=== PATIENT | female | born 1960 | race Caucasian/White ===

== ENCOUNTER 2016-03-11 17:57 | Emergency (ER) | payer SELFPAY ==
[~2016-03-11] VITALS: Ht 160 cm; Wt 105.7 kg
[2016-03-11] VITALS (8 sets, daily range): BP systolic 131–180; BP diastolic 80–100; PULSE 59–67; RESP 16–18; TEMP 97.7; O2SAT 95–98
[~2016-03-11 17:57] MED LIST: ARIP1TAB5 PO; DULO20 PO; LEVO112T2 PO; LOSA50TA PO; MECL-62 PO; ZOCO40TA PO; ZOFR4TAB PO
[2016-03-11] MEDS ORDERED: CLOPIDOGREL 300 MG TAB PO ONE (18:15)
[2016-03-11] MEDS ORDERED: MORPHINE SULFATE 4 MG/ML INJ IV PUSH ONE (18:15)
[2016-03-11] MEDS ORDERED: SODIUM CHLORIDE 0.9% FLUSH 5 ML FLUSH IVF PRN (18:15)
[2016-03-11] MEDS ORDERED: ASPIRIN 81 MG CHEW TAB PO ONE (18:15)
[2016-03-11] MEDS: NITROGLYCERIN 0.4 MG SL 25 TABS/BTL SL SCH ×3 (18:20→18:34)
--- NOTE | 2016-03-11 18:20 | PD ---
HPI . Chest and left arm pain Chief Complaint: Chest Pain Time Seen by Provider: 18:12 Travel History International Travel<30 days: No Contact w/Intl Traveler<30days: No Traveled to known affect area: No History of Present Illness HPI Patient presents with chest and left arm pain which has been ongoing for about a week. It is exacerbated by movement. It has been partially relieved by ibuprofen. She denies any associated symptoms such as shortness of breath, diaphoresis, dizziness, nausea. PFSH Past Medical History Anxiety: Yes Cardiovascular Problems: Yes (htn on meds) High Cholesterol: Yes Diminished Hearing: No Hypertension: Yes ?: Not Menopausal: Yes Tubal Ligation: Yes Past Surgical History Gynecologic Surgery: Yes (uterine ablation) Other Surgery: Yes (THYROID CA, OBLATION) Social History Alcohol Use: No Tobacco Use: No Substance Use: No Allergies-Medications (Allergen,Severity, Reaction): Coded Allergies: No Known Allergies (Unverified , 03/11/16) Reported Meds & Prescriptions Reported Meds & Active Scripts Active Ultram (Tramadol HCl) 50 Mg Tab 50 Mg PO Q4H PRN Ibuprofen 800 Mg Tab 800 Mg PO Q8H PRN Levothyroxine (Levothyroxine Sodium) 112 Mcg Tab 112 Mcg PO DAILY Cymbalta DR (Duloxetine HCl) 20 Mg Capdr 20 Mg PO DAILY Abilify (Aripiprazole) 10 Mg Tab 10 Mg PO DAILY Reported Zocor (Simvastatin) 40 Mg Tab 40 Mg PO HS Losartan (Losartan Potassium) 50 Mg Tab 50 Mg PO DAILY Review of Systems Except as stated in HPI: all other systems reviewed are Neg General / Constitutional: No: Fever, Chills Cardiovascular: Positive: Chest Pain or Discomfort Respiratory: No: Shortness of Breath Gastrointestinal: No: Nausea Skin: Positive Other (no diaphoresis) Physical Exam Narrative GENERAL: This patient is in no acute distress. She appears to be mentally challenged. SKIN: Warm and dry. HEAD: Atraumatic. Normocephalic. EYES: Pupils equal and round. ENT: No nasal bleeding or discharge. Mucous membranes pink and moist. NECK: Trachea midline. C-spine is nontender. She does have some tenderness in the left trapezius. CARDIOVASCULAR: Regular rate and rhythm. Heart sounds are normal. RESPIRATORY: No accessory muscle use. Lungs are clear with full air movement throughout. She does have some left sided chest wall tenderness. GASTROINTESTINAL: Abdomen soft, non-tender, nondistended. MUSCULOSKELETAL: No obvious deformities. No edema. She does have some tenderness to palpation in the left upper extremity. NEUROLOGICAL: Awake and alert. No obvious cranial nerve deficits. Motor grossly within normal limits. Normal speech. PSYCHIATRIC: Appropriate mood and affect; insight and judgment normal. Data Data Last Documented VS Vital Signs Date Time Temp Pulse Resp B/P Pulse Ox O2 Delivery O2 Flow Rate FiO2 03/11/16 19:55 59 16 131/89 98 Nasal Cannula 03/11/16 19:10 2 03/11/16 18:08 97.7 Orders Electrocardiogram (03/11/16 18:12) Ckmb (Isoenzyme) Profile (03/11/16 18:12) Complete Blood Count With Diff (03/11/16 18:12) Comprehensive Metabolic Panel (03/11/16 18:12) Magnesium (Mg) (03/11/16 18:12) Troponin I (03/11/16 18:12) Chest, Single Ap (03/11/16 18:12) Ecg Monitoring (03/11/16 18:12) Bilateral Bp Monitoring (03/11/16 18:12) Iv Access Insert/Monitor (03/11/16 18:12) Oximetry (03/11/16 18:12) Oxygen Administration (03/11/16 18:12) Aspirin Chew (Aspirin Chew) (03/11/16 18:15) Morphine Inj (Morphine Inj) (03/11/16 18:15) Sodium Chloride 0.9% Flush (Ns Flush) (03/11/16 18:15) Nitroglycerin Sl (Nitrostat Sl) (03/11/16 18:15) Clopidogrel (Plavix) (03/11/16 19:00) CKMB (03/11/16 18:20) CKMB% (03/11/16 18:20) Electrocardiogram (03/11/16 ) Troponin I (03/11/16 19:38) Labs Laboratory Tests Test 03/11/16 03/11/16 18:20 20:00 White Blood Count 7.7 TH/MM3 Red Blood Count 4.67 MIL/MM3 Hemoglobin 13.8 GM/DL Hematocrit 40.0 % Mean Corpuscular Volume 85.7 FL Mean Corpuscular Hemoglobin 29.6 PG Mean Corpuscular Hemoglobin 34.5 % Concent Red Cell Distribution Width 13.3 % Platelet Count 267 TH/MM3 Mean Platelet Volume 8.3 FL Neutrophils (%) (Auto) 54.0 % Lymphocytes (%) (Auto) 34.2 % Monocytes (%) (Auto) 5.5 % Eosinophils (%) (Auto) 3.6 % Basophils (%) (Auto) 2.7 % Neutrophils # (Auto) 4.2 TH/MM3 Lymphocytes # (Auto) 2.6 TH/MM3 Monocytes # (Auto) 0.4 TH/MM3 Eosinophils # (Auto) 0.3 TH/MM3 Basophils # (Auto) 0.2 TH/MM3 CBC Comment DIFF FINAL Differential Comment Sodium Level 140 MEQ/L Potassium Level 4.2 MEQ/L Chloride Level 103 MEQ/L Carbon Dioxide Level 27.2 MEQ/L Anion Gap 10 MEQ/L Blood Urea Nitrogen 14 MG/DL Creatinine 1.30 MG/DL Estimat Glomerular Filtration 43 ML/MIN Rate Random Glucose 160 MG/DL Calcium Level 8.9 MG/DL Magnesium Level 2.2 MG/DL Total Bilirubin 0.4 MG/DL Aspartate Amino Transf 36 U/L (AST/SGOT) Alanine Aminotransferase 35 U/L (ALT/SGPT) Alkaline Phosphatase 86 U/L Total Creatine Kinase 330 U/L Creatine Kinase MB 5.0 NG/ML Creatine Kinase MB % 1.5 % Troponin I LESS THAN 0.02 LESS THAN 0.02 NG/ML NG/ML Total Protein 7.8 GM/DL Albumin 3.9 GM/DL MDM Medical Decision Making Medical Screen Exam Complete: Yes Emergency Medical Condition: Yes Interpretation(s) EKG shows a sinus rhythm. She has some nonspecific lateral T-wave changes. She has no old EKGs for comparison. Differential Diagnosis Differential diagnosis of chest pain includes but is not limited to musculoskeletal pain, pulmonary embolism, acute coronary syndrome, pneumonia, pleurisy Narrative Course Patient presents for the evaluation of chest pain and left arm pain. Symptoms have been ongoing for a week. Symptoms are exacerbated by movement and have been partially relieved by ibuprofen. She also has tenderness to palpation. Therefore, the most likely diagnosis is musculoskeletal. However, the patient does have a history of hypertension and hyperlipidemia. And, her EKG is not totally normal. Unfortunately, she has no old EKGs for comparison. CBC is normal. Electrolytes are normal. Her total CK ER elevated but her RI is normal as is her troponin. Chest x-ray is negative to the radiologist's interpretation. Chest x-ray was independently viewed by me. Repeat EKG continues to show lateral T-wave inversion. I have ordered a repeat troponin. Repeat troponin is negative. The most likely diagnosis for this patient is musculoskeletal pain. Diagnosis Primary Impression: Chest pain Qualified Code: R07.9 - Chest pain, unspecified type Additional Impression: Left arm pain Scripts Tramadol (Ultram)50 Mg Tab50 Mg PO Q4H PRN (PAIN) #12 TAB Ref 0 Prov:Marilyn Orellana MD 03/11/16 Ibuprofen 800 Mg [id number] Mg PO Q8H PRN (pain) #30 TAB Ref 0 Prov:Marilyn Orellana MD 03/11/16 Disposition: 01 DISCHARGE HOME Condition: Stable Marilyn Orellana MD Mar 11, 2016 18:20
[2016-03-11 18:29] LABS: AUTOMATED NEUTROPHIL # 4.2 TH/MM3 (1.8-7.7); BASOPHIL # 0.2 TH/MM3 (0-0.2); BASOPHIL % 2.7 % (0.0-2.0); EOSINOPHIL # 0.3 TH/MM3 (0-0.4); EOSINOPHIL % 3.6 % (0.0-4.0); HEMO FLAGS DIFF FINAL; LYMPH % 34.2 % (9.0-44.0); LYMPHOCYTE # 2.6 TH/MM3 (1.0-4.8); MEAN CELL VOLUME 85.7 FL (80.0-100.0); MEAN CORPUSCULAR HEMOGLOBIN 29.6 PG (27.0-34.0); MEAN CORPUSCULAR HGB CONC 34.5 % (32.0-36.0); MONO % 5.5 % (0.0-8.0); PLATELET COUNT 267 TH/MM3 (150-450); RED BLOOD COUNT 4.67 MIL/MM3 (4.00-5.30); RED CELL DISTRIBUTION WIDTH 13.3 % (11.6-17.2); WHITE BLOOD COUNT 7.7 TH/MM3 (4.0-11.0)
[2016-03-11 18:36] LABS: CHLORIDE 103 MEQ/L (98-107); POTASSIUM 4.2 MEQ/L (3.5-5.1); SODIUM (NA) 140 MEQ/L (136-145)
[2016-03-11 18:40] LABS: ANION GAP 10 MEQ/L (5-15); BICARBONATE 27.2 MEQ/L (21.0-32.0); BLOOD UREA NITROGEN 14 MG/DL (7-18); MAGNESIUM 2.2 MG/DL (1.5-2.5)
[2016-03-11 18:43] LABS: ALT (GPT) 35 U/L (10-53); AST (GOT) 36 U/L (15-37); GLOMERULAR FILTRATION RATE 43 ML/MIN (>89)
[2016-03-11 18:44] LABS: TOTAL BILIRUBIN ADULT 0.4 MG/DL (0.2-1.0)
[2016-03-11 18:45] LABS: CREATINE KINASE 330 U/L (26-192)
[2016-03-11 18:46] LABS: ALKALINE PHOSPHATASE 86 U/L (45-117)
--- NOTE | 2016-03-11 18:53 | RADHPO ---
EXAM DATE/TIME: 03/11/2016 18:15 [facility] COMPARISON: No previous studies available for comparison. INDICATIONS : Chest pain one week ago. MEDICAL HISTORY : Asthma. SURGICAL HISTORY : None. ENCOUNTER: Initial ACUITY: 1 week PAIN SCORE: 0/10 LOCATION: Left chest FINDINGS: A single view of the chest demonstrates the lungs to be symmetrically aerated without evidence of mas s, infiltrate or effusion. The cardiomediastinal contours are unremarkable. Osseous structures are intact. CONCLUSION: No acute disease. Rayo Jimenez MD on March 11, 2016 at 18:52 Board Certified Radiologist. This report was verified electronically.
[2016-03-11] MEDS ORDERED: CLOPIDOGREL 75 MG TAB PO ONE (19:00)
[2016-03-11] MEDS ORDERED: ULTR50TA5 PO (20:26)
[2016-03-11] MEDS ORDERED: IBUP800T23 PO (20:26)
--- NOTE | 2016-03-12 23:41 | EKG ---
Date Performed: 03/11/2016 Time Performed: 19:35:30 PTAGE: 55 years EKG: Sinus bradycardia. Nonspecific ST and T wave abnormalities Low QRS voltages in precordial l margarito Abnormal ECG PREVIOUS TRACING : 03/11/2016 18.17 Compared to prior tracing no significant change DOCTOR: Dev Reed Interpretating Date/Time 03/12/2016 23:39:25
--- NOTE | 2016-03-13 20:44 | EKG ---
Date Performed: 03/11/2016 Time Performed: 18:17:52 PTAGE: 55 years EKG: Sinus rhythm . Prolonged QT interval rSr'(V1) - probable normal variant Nonspecific ST and T wave abnormalities Lo w QRS voltages in precordial leads Abnormal ECG NO PREVIOUS TRACING DOCTOR: Dev Reed Interpretating Date/Time 03/13/2016 20:43:40
== END 2016-03-11 21:29 | disposition home or self-care (01) ==
LOC: PHED 17:57
DX: R07.9 Chest pain, unspecified (principal); M79.602 Pain in left arm; E78.00 Pure hypercholesterolemia, unspecified; I10 Essential (primary) hypertension; F41.9 Anxiety disorder, unspecified; R00.1 Bradycardia, unspecified
CPT/HCPCS: 71010; 80053; 82550; 82552; 83735; 84484; 85025; 93005; 96374; 99285; J2270

== ENCOUNTER 2016-04-30 18:16 | Emergency (ER) | payer SELFPAY ==
[~2016-04-30] VITALS: Ht 160 cm; Wt 104.3 kg
[~2016-04-30 18:16] MED LIST changes: +IBUP800T23 PO; -MECL-62 PO; +ULTR50TA5 PO; -ZOFR4TAB PO
[2016-04-30 18:18] VITALS: BP 173/116; PULSE 88; RESP 15; TEMP 98.1; O2SAT 98
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
[2016-04-30 19:10] VITALS: BP 144/87; PULSE 56; RESP 18; TEMP 98.3; O2SAT 97
[2016-04-30 19:15] VITALS: O2SAT 97
[2016-04-30] MEDS ORDERED: ASPIRIN 325 MG TAB PO ONE (19:15)
[2016-04-30 19:31] LABS: AUTOMATED NEUTROPHIL # 3.8 TH/MM3 (1.8-7.7); BASOPHIL # 0.1 TH/MM3 (0-0.2); BASOPHIL % 1.3 % (0.0-2.0); EOSINOPHIL # 0.2 TH/MM3 (0-0.4); EOSINOPHIL % 3.5 % (0.0-4.0); HEMATOCRIT 40.5 % (35.0-46.0); HEMO FLAGS DIFF FINAL; LYMPH % 33.1 % (9.0-44.0); LYMPHOCYTE # 2.2 TH/MM3 (1.0-4.8); MEAN CELL VOLUME 86.3 FL (80.0-100.0); MEAN CORPUSCULAR HEMOGLOBIN 29.2 PG (27.0-34.0); MEAN CORPUSCULAR HGB CONC 33.8 % (32.0-36.0); MONO % 6.1 % (0.0-8.0); PLATELET COUNT 257 TH/MM3 (150-450); RED BLOOD COUNT 4.69 MIL/MM3 (4.00-5.30); RED CELL DISTRIBUTION WIDTH 14.1 % (11.6-17.2); WHITE BLOOD COUNT 6.7 TH/MM3 (4.0-11.0)
[2016-04-30 19:33] LABS: BLOOD, URINE NEG (NEG); GLUCOSE,URINE NEG (NEG); KETONE, URINE NEG (NEG); NITRITE,URINE NEG (NEG)
[2016-04-30 19:43] LABS: URINE COLOR YELLOW (YELLW/STRAW)
[2016-04-30 19:44] LABS: MUCUS URINE MOD /lpf (OCC); SQUAMOUS EPITHELIAL CELL URINE > 8 /hpf (0-5)
--- NOTE | 2016-04-30 19:44 | RADHPO ---
EXAM DATE/TIME: 04/30/2016 19:12 [facility] COMPARISON: CHEST SINGLE AP, March 11, 2016, 18:15. INDICATIONS : Chest pain. MEDICAL HISTORY : Asthma SURGICAL HISTORY : None. ENCOUNTER: Initial ACUITY: 1 day PAIN SCORE: 5/10 LOCATION: Bilateral chest FINDINGS: A single view of the chest demonstrates the lungs to be symmetrically aerated without evidence of mas s, infiltrate or effusion. The cardiomediastinal contours are unremarkable. Osseous structures are intact. CONCLUSION: Normal examination for a patient of this age. No significant change has occurred. Charles Woods MD on April 30, 2016 at 19:42 Board Certified Radiologist. This report was verified electronically.
[2016-04-30 19:45] LABS: BACTERIA, URINE MOD /hpf; CALCIUM OXALATE CRYSTALS,URINE MOD /hpf
[2016-04-30 19:46] LABS: COMMENT (UR) CULTURE INDICATED; CULTURE IF INDICATED CULTURE INDICATED
[2016-04-30 19:52] LABS: CHLORIDE 101 MEQ/L (98-107); POTASSIUM 3.6 MEQ/L (3.5-5.1); SODIUM (NA) 140 MEQ/L (136-145)
[2016-04-30 19:55] LABS: ANION GAP 10 MEQ/L (5-15); BLOOD UREA NITROGEN 15 MG/DL (7-18)
[2016-04-30 19:57] LABS: APTT (PATIENT) 27.8 SEC (24.3-30.1); PROTHROMBIN TIME - PATIENT 11.4 SEC (9.8-11.6)
[2016-04-30 19:58] LABS: ALT (GPT) 38 U/L (10-53); AST (GOT) 34 U/L (15-37)
[2016-04-30 19:59] LABS: GLOMERULAR FILTRATION RATE 39 ML/MIN (>89)
[2016-04-30 20:00] LABS: TOTAL BILIRUBIN ADULT 0.6 MG/DL (0.2-1.0)
[2016-04-30 20:01] LABS: ALKALINE PHOSPHATASE 62 U/L (45-117); CREATINE KINASE 912 U/L (26-192)
[2016-04-30 20:10] VITALS: BP 128/88; PULSE 57; RESP 18; O2SAT 95
[2016-04-30 20:26] LABS: CKMB 7.7 NG/ML (0.5-3.6)
--- NOTE | 2016-04-30 20:49 | RADHPO ---
EXAM DATE/TIME: 04/30/2016 20:05 [facility] COMPARISON: No previous studies available for comparison. INDICATIONS : Low back pain X 1 month. No recent trauma. MEDICAL HISTORY : Asthma. SURGICAL HISTORY : None. ENCOUNTER: Initial ACUITY: 1 month PAIN SCORE: 7/10 LOCATION: Bilateral low back. FINDINGS: Two view examination was performed. There are five non-rib bearing vertebral bodies. There is a mild lumbar dextroscoliosis. No fracture or spondylolisthesis. CONCLUSION: 1. Mild lumbar dextroscoliosis. No acute fracture or spondylolisthesis. Mild degenerative disc diseas simon Woods MD on April 30, 2016 at 20:45 Board Certified Radiologist. This report was verified electronically.
[2016-04-30] MEDS ORDERED: LEVO112T2 PO (21:07)
[2016-04-30] MEDS ORDERED: BACT800T5 PO (21:07)
[2016-04-30 21:10] VITALS: BP 134/86; PULSE 64; RESP 18; O2SAT 95
[2016-04-30] MEDS ORDERED: MOBI15TA PO (21:12)
[2016-04-30] MEDS ORDERED: SULFAMETHOXAZOLE-TRIMETHOPRIM DS 800-160 MG TAB PO ONE (21:15)
--- NOTE | 2016-05-01 18:03 | EKG ---
Date Performed: 04/30/2016 Time Performed: 18:56:46 PTAGE: 55 years EKG: Poor quality EKG, rhythm is most likely Sinus rhythm . Rightward axis Right bundle branch block Inferior/lateral T wave changes may be due to myocardial i schemia. When compared to previous tracing, lateral T waves are slightly Less pronounced, but no othe r significant serial change. Low QRS voltages in precordial leads Abnormal ECG PREVIOUS TRACING : 03/11/2016 19.35 DOCTOR: Mikayla Roblero Interpretating Date/Time 05/01/2016 18:02:58
== END 2016-04-30 21:35 | disposition home or self-care (01) ==
LOC: PHED 18:16
DX: N39.0 Urinary tract infection, site not specified (principal); M54.5 Low back pain; E03.9 Hypothyroidism, unspecified; B96.89 Other specified bacterial agents as the cause of diseases classified elsewhere; E78.00 Pure hypercholesterolemia, unspecified; I10 Essential (primary) hypertension; F41.9 Anxiety disorder, unspecified
CPT/HCPCS: 71010; 72100; 80053; 81001; 82550; 82552; 84443; 84484; 85025; 85610; 85730; 87086; 93005